=== PATIENT | male | born 2000 | race Caucasian/White ===

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

== ENCOUNTER 2022-03-12 15:06 | Emergency (ER) | payer OTHER, MEDICAID | END 2022-03-12 18:38 | disposition home or self-care (01) | LOC: JD.ED 15:06 | DX: F31.9 Bipolar disorder, unspecified (principal); Z88.0 Allergy status to penicillin; Z86.16 Personal history of COVID-19 | CPT/HCPCS: 99284 ==

== ENCOUNTER 2023-01-04 19:25 | Emergency (ER) | payer OTHER, MEDICAID | END 2023-01-04 20:30 | disposition home or self-care (01) | LOC: JD.ED 19:25 | DX: F19.20 Other psychoactive substance dependence, uncomplicated (principal); F17.210 Nicotine dependence, cigarettes, uncomplicated; Z86.16 Personal history of COVID-19; Z88.1 Allergy status to other antibiotic agents | CPT/HCPCS: 99284 ==